=== PATIENT | female | born 1950 | race Two or more races ===

== ENCOUNTER → 2018-03-24 | Outpatient (CLI) | payer OTHER, MEDICARE ==
[2018-03-24 08:59] LABS: Alanine Aminotransferase 91 U/L (13-56); Cholesterol 206 mg/dL (< 200); HDL Cholesterol 51 mg/dL (40-59); LDL Cholesterol 122 mg/dL (< 100); Triglycerides 241 mg/dL (< 150)
== END | disposition home or self-care (01) ==
LOC: LAB 07:57
PROVIDERS: ATTEND Internal Medicine
DX: E11.9 Type 2 diabetes mellitus without complications (principal); E78.5 Hyperlipidemia, unspecified; K76.0 Fatty (change of) liver, not elsewhere classified
CPT/HCPCS: 36415; 80061; 83036; 84460

== ENCOUNTER → 2018-07-25 | Outpatient (CLI) | payer OTHER, MEDICARE ==
[2018-07-25 08:51] LABS: Urine WBC None Seen /hpf (0 - 5)
[2018-07-25 09:04] LABS: Urine Bacteria NONE SEEN /hpf (None Seen); Urine Blood Negative /uL (Negative); Urine Specific Gravity 1.003 (1.001-1.035)
[2018-07-25 09:22] LABS: Albumin 4.1 g/dL (3.4-5.0); Calcium 9.4 mg/dL (8.5-10.1); Potassium 3.7 mmol/L (3.5-5.1)
[2018-07-25 09:27] LABS: BUN/Creatinine Ratio 15.8; Bilirubin, Total 0.8 mg/dL (0.2-1.0); Total Protein 8.5 g/dL (6.4-8.2)
[2018-07-25 09:55] LABS: Basophils # (auto) 0.1 uL; Basophils % (auto) 1.1 % (0.0-2.0); Eosinophils # (auto) 0.2 uL; Eosinophils % (auto) 2.8 % (0.0-7.0); Hematocrit 42.2 % (36.0-46.0); Hemoglobin 14.3 g/dL (12.2-16.2); Lymphocytes % (auto) 28.9 % (10.0-50.0); Mean Corpuscular Hemoglobin 28.3 pg (28.0-32.0); Mean Corpuscular Hgb Conc. 33.8 g/dL (32.0-36.0); Mean Corpuscular Volume 83.7 fL (80.0-100.0); Monocytes # (auto) 0.5 uL; Monocytes % (auto) 7.5 % (0.0-12.0); Neutrophils # (auto) 4.1 uL; Neutrophils % (auto) 59.7 % (37.0-80.0); Nucleated Red Blood Cells % 0.1 %; Platelet Count (auto) 290 10^3/uL (140-450); Red Blood Cells 5.04 10^6/uL (4.0-5.20); Red Cell Distribution Width 14.5 % (11.8-14.3); White Blood Cell 6.9 10^3/uL (4.4-10.8)
[2018-07-25 10:11] LABS: Free T4 (Free Thyroxine) 1.17 ng/dL (0.89-1.76)
== END | disposition home or self-care (01) ==
LOC: LAB 08:24
PROVIDERS: ATTEND Internal Medicine
DX: E11.9 Type 2 diabetes mellitus without complications (principal); E78.5 Hyperlipidemia, unspecified
CPT/HCPCS: 36415; 80053; 80061; 81001; 82043; 82607; 83036; 84439; 84443; 85025; 85652

== ENCOUNTER → 2018-11-28 | Outpatient (CLI) | payer OTHER, MEDICARE | END | disposition home or self-care (01) | LOC: LAB 07:32 | PROVIDERS: ATTEND Internal Medicine | DX: E11.9 Type 2 diabetes mellitus without complications (principal); E78.5 Hyperlipidemia, unspecified | CPT/HCPCS: 36415; 83036; 83721 ==

== ENCOUNTER → 2019-03-19 | Outpatient (CLI) | payer OTHER, MEDICARE ==
[2019-03-19 08:22] LABS: Albumin 3.9 g/dL (3.4-5.0); Calcium 9.2 mg/dL (8.5-10.1)
[2019-03-19 08:25] LABS: Bilirubin, Total 0.5 mg/dL (0.2-1.0); Total Protein 7.8 g/dL (6.4-8.2)
== END | disposition home or self-care (01) ==
LOC: LAB 07:20
PROVIDERS: ATTEND Internal Medicine
DX: Z12.11 Encounter for screening for malignant neoplasm of colon (principal); E11.9 Type 2 diabetes mellitus without complications; I10 Essential (primary) hypertension
CPT/HCPCS: 36415; 80053; 82270; 83036

== ENCOUNTER → 2019-07-22 | Outpatient (CLI) | payer MEDICARE, OTHER ==
[2019-07-22 14:07] LABS: Alanine Aminotransferase 72 U/L (13-56); Aspartate Aminotransferase 50 U/L (15-37)
== END | disposition home or self-care (01) ==
LOC: LAB 12:39
PROVIDERS: ATTEND Internal Medicine
DX: E11.9 Type 2 diabetes mellitus without complications (principal); K76.0 Fatty (change of) liver, not elsewhere classified
CPT/HCPCS: 36415; 83036; 84450; 84460

== ENCOUNTER → 2019-12-04 | Outpatient (CLI) | payer OTHER ==
[2019-12-04 09:33] LABS: Urine WBC None Seen /hpf (0 - 5)
[2019-12-04 09:43] LABS: Basophils # (auto) 0.1 uL; Eosinophils # (auto) 0.4 uL; Eosinophils % (auto) 5.3 % (0.0-7.0); Hematocrit 44.4 % (36.0-46.0); Lymphocytes # (auto) 1.6 uL; Lymphocytes % (auto) 24.7 % (10.0-50.0); Mean Corpuscular Hemoglobin 28.7 pg (28.0-32.0); Mean Corpuscular Hgb Conc. 33.7 g/dL (32.0-36.0); Mean Corpuscular Volume 85.2 fL (80.0-100.0); Monocytes # (auto) 0.5 uL; Monocytes % (auto) 6.9 % (0.0-12.0); Neutrophils # (auto) 4.1 uL; Neutrophils % (auto) 62.1 % (37.0-80.0); Platelet Count (auto) 292 10^3/uL (140-450); Red Blood Cells 5.21 10^6/uL (4.0-5.20); Red Cell Distribution Width 14.5 % (11.8-14.3); White Blood Cell 6.6 10^3/uL (4.4-10.8)
[2019-12-04 09:56] LABS: Urine Bacteria NONE SEEN /hpf (None Seen); Urine Blood Negative /uL (Negative); Urine Specific Gravity 1.005 (1.001-1.035)
[2019-12-04 10:41] LABS: Potassium 3.7 mmol/L (3.5-5.1)
[2019-12-04 10:48] LABS: Free T4 (Free Thyroxine) 1.24 ng/dL (0.89-1.76)
[2019-12-04 10:54] LABS: Albumin 4.1 g/dL (3.4-5.0); BUN/Creatinine Ratio 15.1; Bilirubin, Total 0.7 mg/dL (0.2-1.0); Calcium 9.6 mg/dL (8.5-10.1); Total Protein 8.4 g/dL (6.4-8.2)
== END | disposition home or self-care (01) ==
LOC: LAB 09:02
PROVIDERS: ATTEND Internal Medicine
DX: E11.40 Type 2 diabetes mellitus with diabetic neuropathy, unspecified (principal)
CPT/HCPCS: 36415; 80053; 80061; 81001; 82043; 82607; 83036; 84439; 84443; 85025; 85652

== ENCOUNTER → 2020-05-31 | Outpatient (CLI) | payer OTHER ==
[2020-05-31 09:18] LABS: Albumin 3.9 g/dL (3.4-5.0); Potassium 3.5 mmol/L (3.5-5.1)
[2020-05-31 09:21] LABS: BUN/Creatinine Ratio 23.1; Bilirubin, Total 0.8 mg/dL (0.2-1.0); Total Protein 7.7 g/dL (6.4-8.2)
== END | disposition home or self-care (01) ==
LOC: LAB 08:32
PROVIDERS: ATTEND Internal Medicine
DX: E78.5 Hyperlipidemia, unspecified (principal); I10 Essential (primary) hypertension; E11.9 Type 2 diabetes mellitus without complications
CPT/HCPCS: 36415; 80053; 82270; 83036

== ENCOUNTER → 2021-02-02 | Outpatient (CLI) | payer OTHER ==
[2021-02-02 09:01] LABS: Basophils # (auto) 0.1 10 ^3/uL (0-0.2); Basophils % (auto) 1.1 % (0.0-2.0); Eosinophils # (auto) 0.3 10 ^3/uL (0-0.8); Eosinophils % (auto) 3.8 % (0.0-7.0); Hematocrit 42.1 % (36.0-46.0); Hemoglobin 14.4 g/dL (12.2-16.2); Lymphocytes # (auto) 1.8 10 ^3/uL (0.4-5.4); Mean Corpuscular Hemoglobin 29.2 pg (28.0-32.0); Mean Corpuscular Hgb Conc. 34.3 g/dL (32.0-36.0); Mean Corpuscular Volume 85.2 fL (80.0-100.0); Monocytes # (auto) 0.5 10 ^3/uL (0-1.3); Neutrophils # (auto) 4.9 10 ^3/uL (1.6-8.6); Neutrophils % (auto) 64.1 % (37.0-80.0); Platelet Count (auto) 326 10^3/uL (140-450); Red Blood Cells 4.94 10^6/uL (4.0-5.20); White Blood Cell 7.7 10^3/uL (4.4-10.8)
[2021-02-02 09:02] LABS: Urine Bacteria NONE SEEN /hpf (None Seen); Urine Blood Negative /uL (Negative); Urine Specific Gravity 1.009 (1.001-1.035); Urine WBC <1 /hpf (0 - 5)
[2021-02-02 09:30] LABS: Free T4 (Free Thyroxine) 1.22 ng/dL (0.89-1.76)
[2021-02-02 09:41] LABS: Calcium 9.1 mg/dL (8.5-10.1); Potassium 3.7 mmol/L (3.5-5.1)
[2021-02-02 09:47] LABS: BUN/Creatinine Ratio 18.9; Bilirubin, Total 0.8 mg/dL (0.2-1.0); Total Protein 7.9 g/dL (6.4-8.2)
== END | disposition home or self-care (01) ==
LOC: LAB 08:32
PROVIDERS: ATTEND Internal Medicine
DX: E11.9 Type 2 diabetes mellitus without complications (principal); I10 Essential (primary) hypertension; E78.5 Hyperlipidemia, unspecified
CPT/HCPCS: 36415; 80053; 80061; 81001; 82043; 82607; 83036; 84439; 84443; 85025; 85652

== ENCOUNTER → 2021-10-02 | Outpatient (CLI) | payer OTHER, MEDICARE ==
[2021-10-02 11:21] LABS: Potassium 3.8 mmol/L (3.5-5.1)
[2021-10-02 11:33] LABS: Albumin 4.1 g/dL (3.4-5.0); BUN/Creatinine Ratio 16.7; Bilirubin, Total 0.6 mg/dL (0.2-1.0); Calcium 8.9 mg/dL (8.5-10.1); Total Protein 7.5 g/dL (6.4-8.2)
== END | disposition home or self-care (01) ==
LOC: LAB 10:20
PROVIDERS: ATTEND Internal Medicine
DX: E11.9 Type 2 diabetes mellitus without complications (principal); I10 Essential (primary) hypertension
CPT/HCPCS: 36415; 80053; 83036

== ENCOUNTER → 2022-01-11 | Outpatient (CLI) | payer OTHER, MEDICARE ==
[2022-01-11 10:30] LABS: Basophils # (auto) 0.1 10 ^3/uL (0-0.2); Basophils % (auto) 0.9 % (0.0-2.0); Eosinophils # (auto) 0.2 10 ^3/uL (0-0.8); Eosinophils % (auto) 3.1 % (0.0-7.0); Hematocrit 40.9 % (36.0-46.0); Hemoglobin 13.8 g/dL (12.2-16.2); Lymphocytes # (auto) 1.8 10 ^3/uL (0.4-5.4); Lymphocytes % (auto) 28.8 % (10.0-50.0); Mean Corpuscular Hemoglobin 28.7 pg (28.0-32.0); Mean Corpuscular Hgb Conc. 33.7 g/dL (32.0-36.0); Monocytes # (auto) 0.5 10 ^3/uL (0-1.3); Monocytes % (auto) 8.6 % (0.0-12.0); Neutrophils # (auto) 3.7 10 ^3/uL (1.6-8.6); Neutrophils % (auto) 58.6 % (37.0-80.0); Nucleated Red Blood Cells % 0.1 %; Red Blood Cells 4.81 10^6/uL (4.0-5.20); Red Cell Distribution Width 13.9 % (11.8-14.3); White Blood Cell 6.4 10^3/uL (4.4-10.8)
[2022-01-11 11:56] LABS: Albumin 3.8 g/dL (3.4-5.0); Calcium 8.9 mg/dL (8.5-10.1); Potassium 3.9 mmol/L (3.5-5.1)
[2022-01-11 12:00] LABS: BUN/Creatinine Ratio 18.5; Bilirubin, Total 0.7 mg/dL (0.2-1.0); Total Protein 7.6 g/dL (6.4-8.2)
== END | disposition home or self-care (01) ==
LOC: LAB 10:04
PROVIDERS: ATTEND Internal Medicine
DX: E11.9 Type 2 diabetes mellitus without complications (principal); I10 Essential (primary) hypertension
CPT/HCPCS: 36415; 80053; 83036; 85025

== ENCOUNTER → 2024-07-09 | Outpatient (CLI) | payer OTHER | END | disposition home or self-care (01) | LOC: LAB 09:43 | PROVIDERS: ATTEND Internal Medicine | DX: Z12.11 Encounter for screening for malignant neoplasm of colon (principal); E11.42 Type 2 diabetes mellitus with diabetic polyneuropathy | CPT/HCPCS: 82270 ==

== ENCOUNTER → 2024-12-14 | Outpatient (CLI) | payer OTHER ==
[2024-12-14 08:11] LABS: Urine Bacteria None Seen /hpf (None Seen)
[2024-12-14 08:39] LABS: Basophils # (auto) 0.1 10 ^3/uL (0-0.2); Basophils % (auto) 2.4 % (0.0-2.0); Eosinophils # (auto) 0.4 10 ^3/uL (0-0.8); Eosinophils % (auto) 6.3 % (0.0-7.0); Hematocrit 40.2 % (36.0-46.0); Hemoglobin 13.7 g/dL (12.2-16.2); Lymphocytes # (auto) 1.7 10 ^3/uL (0.4-5.4); Lymphocytes % (auto) 29.4 % (10.0-50.0); Mean Corpuscular Hemoglobin 29.4 pg (28.0-32.0); Mean Corpuscular Hgb Conc. 34.1 g/dL (32.0-36.0); Mean Corpuscular Volume 86.3 fL (80.0-100.0); Monocytes # (auto) 0.5 10 ^3/uL (0-1.3); Monocytes % (auto) 7.9 % (0.0-12.0); Neutrophils # (auto) 3.2 10 ^3/uL (1.6-8.6); Nucleated Red Blood Cells % 0.1 %; Platelet Count (auto) 272 10^3/uL (140-450); Red Blood Cells 4.66 10^6/uL (4.0-5.20); Red Cell Distribution Width 13.5 % (11.8-14.3); White Blood Cell 5.9 10^3/uL (4.4-10.8)
[2024-12-14 08:59] LABS: Urine Blood Negative /uL (Negative); Urine Clarity Clear (Clear); Urine Color Colorless (Yellow); Urine Protein, UAD Negative (Negative); Urine Specific Gravity 1.005 (1.001-1.035); Urine Squamous Epithelial Cell FEW /hpf (<5); Urine Urobilinogen Normal (Negative)
[2024-12-14 09:05] LABS: Albumin 4.8 g/dL (3.2-4.8); Alkaline Phosphatase 73 U/L (46-116); Anion Gap 5 (5-15); BUN/Creatinine Ratio 13.8 (10.0-20.0); Bilirubin, Total 0.9 mg/dL (0.2-1.0); Blood Urea Nitrogen 9 mg/dL (9-23); Calcium 9.9 mg/dL (8.7-10.4); Carbon Dioxide 28 mmol/L (20-31); Chloride 101 mmol/L (98-107); Cholesterol 195 mg/dL (< 200); Potassium 4.1 mmol/L (3.5-5.1); Total Protein 7.3 g/dL (5.7-8.2); Triglycerides 131 mg/dL (< 150)
[2024-12-14 09:08] LABS: Alanine Aminotransferase 65 U/L (7-40); Aspartate Aminotransferase 49 U/L (13-40); Glucose 181 mg/dL (74-106); HDL Cholesterol 60 mg/dL (40-59); LDL Cholesterol 112 mg/dL (< 100); Sodium 134 mmol/L (136-145)
[2024-12-14 09:19] LABS: Erythrocyte Sedimentation Rate 5 mm/hr (0-20)
[2024-12-14 10:01] LABS: Creatinine, Urine 19.21 mg/dL (30.0-125.0)
[2024-12-14 10:35] LABS: Micro Albumin < 3.0 mg/L (<30.0); Urine WBC < 1 /HPF (0-5)
[2024-12-14 10:58] LABS: Free T4 (Free Thyroxine) 1.24 ng/dL (0.89-1.76)
== END | disposition home or self-care (01) ==
LOC: LAB 07:54
PROVIDERS: ATTEND Internal Medicine
DX: I10 Essential (primary) hypertension (principal); E11.9 Type 2 diabetes mellitus without complications
CPT/HCPCS: 36415; 80053; 80061; 81001; 82043; 82570; 82607; 83036; 84439; 84443; 85025; 85652

== ENCOUNTER 2025-06-21 06:55 | Outpatient (CLI) | payer OTHER ==
[2025-06-21 08:06] LABS: Triglycerides 126 mg/dL (< 150)
[2025-06-21 08:08] LABS: Cholesterol 139 mg/dL (< 200); HDL Cholesterol 55 mg/dL (40-59)
[2025-06-21 08:09] LABS: Alanine Aminotransferase 42 U/L (7-40)
== END 2025-06-21 17:00 | disposition home or self-care (01) ==
LOC: LAB 06:55
PROVIDERS: ATTEND Internal Medicine
DX: E11.9 Type 2 diabetes mellitus without complications (principal); E78.5 Hyperlipidemia, unspecified
CPT/HCPCS: 36415; 80061; 83036; 84450; 84460